=== PATIENT | male | born 1950 | race Caucasian/White ===

== ENCOUNTER 2018-03-11 11:50 | Emergency (ER) | payer OTHER ==
[2018-03-11 12:14] VITALS: BP 185/84; PULSE 70; RESP 18; TEMP 97.1
--- NOTE | 2018-03-11 12:46 | ED ---
General Adult HPI - General Chief complaint: Dental/Oral Stated complaint: Abscess Tooth, Facial Swelling Time Seen by Provider: 03/11/18 12:04 Source: patient, RN notes reviewed Mode of arrival: ambulatory Limitations: no limitations - History of Present Illness Initial comments: 58-year-old male says to the emergency department for a chief complaint of tooth infection 2 days. Patient states he believes he chipped his tooth with a peanut and has had pain and swelling since then. Patient admits the pain is worse when drinking hot or cold liquids. Patient denies fevers or chills. Patient denies neck pain or neck stiffness. Patient denies any headaches or visual changes. Patient denies any drainage from the tooth. Patient states he has an appointment in 5 days with a dentist but did not think he should wait to be seen.Patient has no other complaints at this time including shortness of breath, chest pain, abdominal pain, nausea or vomiting. - Related Data Previous Rx's Medication Instructions Recorded Colchicine 0.6 mg PO BID #20 capsule 06/26/15 Indomethacin [Indocin] 25 mg PO TID PRN #12 capsule 06/26/15 Ibuprofen [Motrin] 600 mg PO Q8HR PRN #20 tab 03/11/18 Penicillin V Potassium [Pen Vee K] 500 mg PO Q6H 10 Days tablet 03/11/18 Allergies Allergy/AdvReac Type Severity Reaction Status Date / Time No Known Allergies Allergy Verified 03/11/18 12:39 Review of Systems ROS Statement: Those systems with pertinent positive or pertinent negative responses have been documented in the HPI. ROS Other: All systems not noted in ROS Statement are negative. Past Medical History Past Medical History: Hyperlipidemia, Hypertension, Myocardial Infarction ([place]), Prostate Disorder Additional Past Medical History / Comment(s): gout History of Any Multi-Drug Resistant Organisms: MRSA Date of last positivie culture/infection: 2008/MRSA MDRO Source:: feet Past Surgical History: Coronary Bypass/CABG Additional Past Surgical History / Comment(s): defibrillator Past Psychological History: No Psychological Hx Reported Smoking Status: Former smoker Past Alcohol Use History: Occasional Past Drug Use History: None Reported General Exam Limitations: no limitations General appearance: alert, in no apparent distress Head exam: Present: atraumatic, normocephalic, normal inspection Eye exam: Present: normal appearance, PERRL, EOMI. Absent: scleral icterus, conjunctival injection, periorbital swelling, periorbital tenderness ENT exam: Present: normal exam, mucous membranes moist, TM's normal bilaterally , normal external ear exam, other (Patient has mild swelling of the right upper maxillary area. No signs of a cellulitic infection or abscess.). Absent: normal oropharynx (patient has a fractured tooth 8, tenderness to palpation. No abscess identified visually or with palpation of the gum line. ) Neck exam: Present: normal inspection, full ROM (Patient has full range of motion of the neck without any pain or stiffness), other (No swelling in the neck). Absent: tenderness, meningismus, lymphadenopathy Respiratory exam: Present: normal lung sounds bilaterally. Absent: respiratory distress, wheezes, rales, rhonchi, stridor Cardiovascular Exam: Present: regular rate, normal rhythm, normal heart sounds. Absent: systolic murmur, diastolic murmur, rubs, gallop, clicks Neurological exam: Present: alert, oriented X3, CN II-XII intact Psychiatric exam: Present: normal affect, normal mood Course Vital Signs 03/11/18 12:13 Temperature 97.1 F L Pulse Rate 70 Respiratory 18 Rate Blood Pressure 185/84 O2 Sat by Pulse 97 Oximetry Medical Decision Making - Medical Decision Making 68-year-old male presents to the emergency department for a chief complaint of tooth infection x 2 days. Patient has pain with the tooth as well. Patient denies fevers or chills at home. Afebrile on presentation. On exam patient has mild swelling of the right maxillary area and tenderness to tooth 8 which appears fractured. Patient does have poor dentition in general. No abscess noted on exam. Patient given penicillin for this. He has an appointment with his dentist in 5 days and will follow-up at that time. Patient aware he can return to the emergency department if he has any worsening symptoms and he should return if he has worsening pain, worsening swelling, or neck stiffness or fevers or chills at home. She is hypertensive with a systolic of 185/84 in the emergency department. However he was late on taking his blood pressure medications and just took them. He is asymptomatic and denies headache, shortness of breath, chest pain. He will follow up with primary care for blood pressure management. Disposition Clinical Impression: Dental infection Disposition: HOME SELF-CARE Condition: Good Instructions: Dental Caries (ED), Toothache (ED) Additional Instructions: Please take antibiotic as directed. Please take Motrin and Tylenol for pain. Please attend your dentist appointment on March 16. Return to the emergency department if you develop any worsening symptoms, fevers, or neck stiffness. Prescriptions: Ibuprofen [Motrin] 600 mg PO Q8HR PRN #20 tab PRN Reason: Pain Penicillin V Potassium [Pen Vee K] 500 mg PO Q6H 10 Days tablet Is patient prescribed a controlled substance at d/c from ED?: No Referrals: [facility],Clinic [Primary Care Provider] - 1-2 days Time of Disposition: 12:45
== END 2018-03-11 12:58 | disposition home or self-care (01) ==
LOC: EC 11:50
DX: K04.7 Periapical abscess without sinus (principal); S02.5XXA Fracture of tooth (traumatic), initial encounter for closed fracture; I10 Essential (primary) hypertension; I25.2 Old myocardial infarction; Z86.14 Personal history of Methicillin resistant Staphylococcus aureus infection; Z95.1 Presence of aortocoronary bypass graft; Z95.810 Presence of automatic (implantable) cardiac defibrillator; X58.XXXA Exposure to other specified factors, initial encounter
CPT/HCPCS: 99283

== ENCOUNTER 2018-11-30 19:04 | Emergency (ER) | payer MEDICARE, OTHER ==
[2018-11-30] MEDS ORDERED: ACETAMINOPHEN TAB 500 MG TAB PO STA (20:15)
[2018-11-30] MEDS ORDERED: IPRATROPIUM-ALBUTEROL 3 ML NEB INHALATION STA (20:35)
--- NOTE | 2018-11-30 20:36 | ED ---
URI HPI - General Chief Complaint: Upper Respiratory Infection Stated Complaint: Poss pneumonia Time Seen by Provider: 11/30/18 19:32 Source: patient Mode of arrival: ambulatory Limitations: no limitations - History of Present Illness Initial Comments: 68-year-old male patient with past medical history significant for CHF, hyperlipidemia, hypertension, [place], BPH, and gout presents to the emergency department today for evaluation of cough. Patient states that he has had a cough on and off for the last month. Patient states for the last week he started to feel better however started coughing again yesterday. Patient states that he has been feeling more weak and occasionally short of breath. Patient does admit to some blood in his sputum. He denies any nasal congestion, sore throat, or ear pain. He denies any known fevers or chills. He denies any increased swelling to his extremities. Denies any orthopnea. He has been taking his medications as directed. Patient denies any recent rash, chest pain, abdominal pain, nausea, vomiting, diarrhea, constipation, back pain, numbness, tingling, dizziness, weakness, hematuria, dysuria, urinary urgency, urinary frequency, headache, visual changes, or any other complaints. He does report a history of smoking, but states he quit 40 years ago. - Related Data Home Medications Medication Instructions Recorded Confirmed Allopurinol [Zyloprim] 150 mg PO BID 11/30/18 11/30/18 Finasteride [Proscar] 5 mg PO DAILY 11/30/18 11/30/18 Folic Acid 1 mg PO DAILY 11/30/18 11/30/18 Furosemide [Lasix] 40 mg PO BID 11/30/18 11/30/18 Metoprolol Tartrate [Lopressor] 75 mg PO BID 11/30/18 11/30/18 Ranitidine HCl [Zantac] 150 mg PO BID 11/30/18 11/30/18 Terazosin HCl 10 mg PO HS 11/30/18 11/30/18 traMADol HCL [Ultram] 50 mg PO Q4-6H PRN 11/30/18 11/30/18 Previous Rx's Medication Instructions Recorded Albuterol Sulfate [Proair Hfa] 1 - 2 puff INHALATION Q6HR PRN #1 11/30/18 inhaler Azithromycin [Zithromax Z-pack] 0 mg PO DIRECTED #6 tab 11/30/18 predniSONE 50 mg PO DAILY #5 tablet 11/30/18 Allergies Allergy/AdvReac Type Severity Reaction Status Date / Time No Known Allergies Allergy Verified 11/30/18 20:16 Review of Systems ROS Statement: Those systems with pertinent positive or pertinent negative responses have been documented in the HPI. ROS Other: All systems not noted in ROS Statement are negative. Past Medical History Past Medical History: Hyperlipidemia, Hypertension, Myocardial Infarction ([place]), Prostate Disorder Additional Past Medical History / Comment(s): gout History of Any Multi-Drug Resistant Organisms: MRSA Date of last positivie culture/infection: 2008/MRSA MDRO Source:: feet Past Surgical History: Coronary Bypass/CABG Additional Past Surgical History / Comment(s): defibrillator Past Psychological History: No Psychological Hx Reported Smoking Status: Former smoker Past Alcohol Use History: Occasional Past Drug Use History: None Reported General Exam Limitations: no limitations General appearance: alert, in no apparent distress, other (Physical well- developed, well-nourished elderly male patient in no acute distress. Vital signs upon presentation are temperature 101.5F oral, pulse 81, respirations 22, blood pressure 150/71, pulse ox 94% on room air.) Eye exam: Present: normal appearance, PERRL, EOMI. Absent: scleral icterus, conjunctival injection, periorbital swelling ENT exam: Present: normal exam, normal oropharynx, mucous membranes moist Respiratory exam: Present: wheezes (Coarse expiratory wheezing at the posterior bases). Absent: normal lung sounds bilaterally, respiratory distress, rales, rhonchi, stridor Cardiovascular Exam: Present: regular rate, normal rhythm, normal heart sounds. Absent: systolic murmur, diastolic murmur, rubs, gallop, clicks GI/Abdominal exam: Present: soft, normal bowel sounds. Absent: distended, tenderness, guarding, rebound, rigid Neurological exam: Present: alert, oriented X3, CN II-XII intact Psychiatric exam: Present: normal affect, normal mood Skin exam: Present: warm, dry, intact, normal color. Absent: rash Course Vital Signs 11/30/18 11/30/18 11/30/18 19:13 20:14 20:45 Temperature 99.5 F 101.5 F H Pulse Rate 81 79 Respiratory 22 20 Rate Blood Pressure 150/71 145/62 O2 Sat by Pulse 94 L 94 L Oximetry 11/30/18 11/30/18 11/30/18 21:36 21:46 21:52 Temperature 100.3 F H Pulse Rate 80 80 78 Respiratory 18 Rate Blood Pressure 146/70 O2 Sat by Pulse 96 Oximetry 11/30/18 23:15 Temperature Pulse Rate 76 Respiratory 18 Rate Blood Pressure 140/65 O2 Sat by Pulse 94 L Oximetry Medical Decision Making - Medical Decision Making 68-year-old male patient presents to the emergency department today for evaluation of dry cough, occasional shortness of breath, and fever. Physical examination reveals mild expiratory wheezing at the posterior bases. Patient is in no respiratory distress. His breathing without difficulty. Oxygen saturation is 94% on initial evaluation. Labs reviewed and were unremarkable. What normal white blood cell count. He is negative for influenza. Chest x-ray shows no acute cardio pulmonary process. Upon reevaluation patient states he does feel better. He does feel comfortable being discharged home at this time. He'll be started on steroids, antibiotics, and given a Pro Air inhaler. He is instructed to follow-up with his primary care physician for recheck in 1-2 days. He is instructed to maintain low threshold for return. Return parameters were discussed in detail. He verbalizes understanding and agrees with this plan. - Lab Data Result diagrams: 11/30/18 20:35 11/30/18 20:35 Lab Results 11/30/18 11/30/18 11/30/18 Range/Units 20:35 20:35 20:35 WBC 9.1 (3.8-10.6) k/uL RBC 4.33 (4.30-5.90) m/uL Hgb 13.5 (13.0-17.5) gm/dL Hct 38.8 L (39.0-53.0) % MCV 89.5 (80.0-100.0) fL MCH 31.2 (25.0-35.0) pg MCHC 34.9 (31.0-37.0) g/dL RDW 15.2 (11.5-15.5) % Plt Count 136 L (150-450) k/uL Neutrophils % 78 % Lymphocytes % 12 % Monocytes % 5 % Eosinophils % 3 % Basophils % 0 % Neutrophils # 7.1 (1.3-7.7) k/uL Lymphocytes # 1.1 (1.0-4.8) k/uL Monocytes # 0.5 (0-1.0) k/uL Eosinophils # 0.3 (0-0.7) k/uL Basophils # 0.0 (0-0.2) k/uL Hyperchromasia Slight Poikilocytosis Slight PT (9.0-12.0) sec INR (<1.2) APTT (22.0-30.0) sec D-Dimer (<0.60) mg/L FEU Sodium 141 (137-145) mmol/L Potassium 4.1 (3.5-5.1) mmol/L Chloride 102 (98-107) mmol/L Carbon Dioxide 30 (22-30) mmol/L Anion Gap 9 mmol/L BUN 17 (9-20) mg/dL Creatinine 1.26 H (0.66-1.25) mg/dL Est GFR (CKD-EPI)AfAm 67 (>60 ml/min/1.73 sqM) Est GFR (CKD-EPI)NonAf 58 (>60 ml/min/1.73 sqM) Glucose 117 H (74-99) mg/dL Plasma Lactic Acid Josue 1.6 (0.7-2.0) mmol/L Calcium 9.8 (8.4-10.2) mg/dL Total Bilirubin 1.1 (0.2-1.3) mg/dL AST 59 (17-59) U/L ALT 59 (21-72) U/L Alkaline Phosphatase 43 (38-126) U/L Total Protein 7.0 (6.3-8.2) g/dL Albumin 4.4 (3.5-5.0) g/dL Urine Color Urine Appearance (Clear) Urine pH (5.0-8.0) Ur Specific [place] (1.001-1.035) Urine Protein (Negative) Urine Glucose (UA) (Negative) Urine Ketones (Negative) Urine Blood (Negative) Urine Nitrite (Negative) Urine Bilirubin (Negative) Urine Urobilinogen (<2.0) mg/dL Ur Leukocyte Esterase (Negative) Influenza Type A RNA (Not Detectd) Influenza Type B (PCR) (Not Detectd) 11/30/18 11/30/18 11/30/18 Range/Units 20:35 20:35 21:49 WBC (3.8-10.6) k/uL RBC (4.30-5.90) m/uL Hgb (13.0-17.5) gm/dL Hct (39.0-53.0) % MCV (80.0-100.0) fL MCH (25.0-35.0) pg MCHC (31.0-37.0) g/dL RDW (11.5-15.5) % Plt Count (150-450) k/uL Neutrophils % % Lymphocytes % % Monocytes % % Eosinophils % % Basophils % % Neutrophils # (1.3-7.7) k/uL Lymphocytes # (1.0-4.8) k/uL Monocytes # (0-1.0) k/uL Eosinophils # (0-0.7) k/uL Basophils # (0-0.2) k/uL Hyperchromasia Poikilocytosis PT 10.0 (9.0-12.0) sec INR 0.9 (<1.2) APTT 23.9 (22.0-30.0) sec D-Dimer 0.54 (<0.60) mg/L FEU Sodium (137-145) mmol/L Potassium (3.5-5.1) mmol/L Chloride (98-107) mmol/L Carbon Dioxide (22-30) mmol/L Anion Gap mmol/L BUN (9-20) mg/dL Creatinine (0.66-1.25) mg/dL Est GFR (CKD-EPI)AfAm (>60 ml/min/1.73 sqM) Est GFR (CKD-EPI)NonAf (>60 ml/min/1.73 sqM) Glucose (74-99) mg/dL Plasma Lactic Acid Josue (0.7-2.0) mmol/L Calcium (8.4-10.2) mg/dL Total Bilirubin (0.2-1.3) mg/dL AST (17-59) U/L ALT (21-72) U/L Alkaline Phosphatase (38-126) U/L Total Protein (6.3-8.2) g/dL Albumin (3.5-5.0) g/dL Urine Color Light Yellow Urine Appearance Clear (Clear) Urine pH 6.5 (5.0-8.0) Ur Specific [place] 1.008 (1.001-1.035) Urine Protein Negative (Negative) Urine Glucose (UA) Negative (Negative) Urine Ketones Negative (Negative) Urine Blood Negative (Negative) Urine Nitrite Negative (Negative) Urine Bilirubin Negative (Negative) Urine Urobilinogen <2.0 (<2.0) mg/dL Ur Leukocyte Esterase Negative (Negative) Influenza Type A RNA Not Detected (Not Detectd) Influenza Type B (PCR) Not Detected (Not Detectd) - EKG Data -: EKG Interpreted by Ks EKG Comments: EKG obtained at 2041 shows normal sinus rhythm with a ventricular rate is 79, KS interval 178, QRS duration 98, QT 366, QTC 419. No evidence of ST elevation or depression. - Radiology Data Radiology results: report reviewed, image reviewed Two-view x-ray of the chest is obtained. Report reviewed in its entirety. Impression by Dr. Tubbs shows no active cardiopulmonary disease. Disposition Clinical Impression: Acute bronchitis Disposition: HOME SELF-CARE Condition: Good Instructions (If sedation given, give patient instructions): Acute Bronchitis (ED) Additional Instructions: Complete medications as prescribed. Follow-up with primary care physician for recheck in 1-2 days. Return to the emergency department immediately for any new, worsening, or concerning symptoms. Prescriptions: predniSONE 50 mg PO DAILY #5 tablet Albuterol Sulfate [Proair Hfa] 1 - 2 puff INHALATION Q6HR PRN #1 inhaler PRN Reason: Shortness Of Breath Azithromycin [Zithromax Z-pack] 0 mg PO DIRECTED #6 tab Is patient prescribed a controlled substance at d/c from ED?: No Referrals: [facility],Clinic [Primary Care Provider] - 1-2 days Time of Disposition: 22:26
[2018-11-30] MEDS: SODIUM CHLORIDE 0.9% 500 ML 500 ML IV SCH ×2 (20:50→20:51)
[2018-11-30 21:19] LABS: Basophils % (A) 0 %; Eosinophils # (A) 0.3 k/uL (0-0.7); Eosinophils % (A) 3 %; HCT 38.8 % (39.0-53.0); HGB 13.5 gm/dL (13.0-17.5); Hyperchromasia Slight; Lymphocytes # (A) 1.1 k/uL (1.0-4.8); Lymphocytes % (A) 12 %; MCH 31.2 pg (25.0-35.0); MCHC 34.9 g/dL (31.0-37.0); MCV 89.5 fL (80.0-100.0); Mean Platelet Volume 7.6; Monocytes # (A) 0.5 k/uL (0-1.0); Monocytes % (A) 5 %; Neutrophils # (A) 7.1 k/uL (1.3-7.7); Neutrophils % (A) 78 %; Platelet Count 136 k/uL (150-450); Poikilocytosis Slight; RBC 4.33 m/uL (4.30-5.90); RDW 15.2 % (11.5-15.5); WBC 9.1 k/uL (3.8-10.6)
[2018-11-30 21:27] LABS: D-Dimer 0.54 mg/L FEU (<0.60); INR 0.9 (<1.2); Partial Thromboplastin Time 23.9 sec (22.0-30.0)
[2018-11-30 21:33] LABS: Albumin 4.4 g/dL (3.5-5.0); Calcium 9.8 mg/dL (8.4-10.2); Potassium 4.1 mmol/L (3.5-5.1); Total Bilirubin 1.1 mg/dL (0.2-1.3)
--- NOTE | 2018-11-30 21:46 | XR ---
EXAMINATION TYPE: XR chest 2V DATE OF EXAM: 11/30/2018 COMPARISON: NONE HISTORY: Cough TECHNIQUE: Frontal and lateral views of the chest are obtained. FINDINGS: Heart is normal. Lungs are clear of consolidation. There is no pleural effusion. There are sternal wires. There are chest leads. Bony thorax is intact. IMPRESSION: No active cardiopulmonary disease.
[2018-11-30 21:53] VITALS: RESP 18; TEMP 100.3
[2018-11-30 22:03] LABS: Appearance,Urine Clear (Clear); Bilirubin,Urine Negative (Negative); Blood,Urine Negative (Negative); Color,Urine Light Yellow; Glucose,Urine (UA) Negative (Negative); Ketones,Urine Negative (Negative); Leukocyte Esterase,Urine Negative (Negative); Nitrite,Urine Negative (Negative); PH, Urine 6.5 (5.0-8.0); Protein,Urine Negative (Negative); Specific Gravity,Urine 1.008 (1.001-1.035); Urobilinogen,Urine <2.0 mg/dL (<2.0)
[2018-11-30] MEDS ORDERED: AZITHROMYCIN 500 MG TAB PO STA (22:26)
[2018-11-30 23:16] VITALS: BP 140/65; PULSE 76
== END 2018-11-30 23:16 | disposition home or self-care (01) ==
LOC: EC 19:04
DX: J20.9 Acute bronchitis, unspecified (principal); R53.1 Weakness; I10 Essential (primary) hypertension; I25.2 Old myocardial infarction; N42.9 Disorder of prostate, unspecified; M10.9 Gout, unspecified; Z86.14 Personal history of Methicillin resistant Staphylococcus aureus infection; Z95.1 Presence of aortocoronary bypass graft; Z95.810 Presence of automatic (implantable) cardiac defibrillator; Z87.891 Personal history of nicotine dependence; Z79.899 Other long term (current) drug therapy
CPT/HCPCS: 36415; 71046; 80053; 81003; 83605; 85025; 85379; 85610; 85730; 87040; 87086; 87502; 93005; 94640; 99284

== ENCOUNTER 2020-07-17 08:55 | Day surgery (SDC) | payer OTHER ==
[2020-07-15 14:39] VITALS: BMI 42.4
[~2020-07-17 08:55] MED LIST: LACTATED RINGERS 1,000 ML IV SCH; LIDOCAINE 1% (10MG/ML) FOR IV START INTRADERMA PRN
[2020-07-17 09:25] VITALS: RESP 18; TEMP 97.4
[2020-07-17] MEDS ORDERED: PROPOFOL 10 MG/ML 20 ML VIAL IV ONE (10:16)
--- NOTE | 2020-07-17 10:46 | P.PCN ---
Date of Procedure: 07/17/20 Procedure(s) Performed: BRIEF HISTORY: Patient is a 70-year-old pleasant male scheduled for an elective colonoscopy as a part of screening for colorectal neoplasia. Last colonoscopy was 7 years ago. PROCEDURE PERFORMED: Colonoscopy with snare polypectomy. PREOPERATIVE DIAGNOSIS: Screening for colon cancer. IV sedation per Anesthesia. PROCEDURE: After informed consent was obtained, the patient, was brought into the endoscopy unit. IV sedation was administered by Anesthesia under continuous monitoring. Digital rectal examination was normal. Initially the Olympus CF-160 flexible video colonoscope was then inserted in the rectum, gradually advanced into the cecum without any difficulty. Careful examination was performed as the scope was gradually being withdrawn. Ileocecal valve and the appendiceal orifice were visualized and appeared normal. Prep was excellent. Mucosa of the cecum, ascending colon, normal. The transverse colon there was a 5 mm polyp that was removed by snare polypectomy. In the descending colon there was a 7 mm polyp removed by snare polypectomy. Rest of the transverse colon, descending colon, sigmoid colon, and rectum appeared normal. Retroflexion was performed in the rectum and no lesions were seen. The patient tolerated the procedure well. IMPRESSION: 5 mm transverse colon polyp status post polypectomy 7 mm descending colon polyp status post polypectomy RECOMMENDATIONS: Findings of this examination were discussed with the patient as well as his family. He was advised to follow with the biopsy results. If the biopsy shows an adenoma he can have a repeat colonoscopy in 5.
[2020-07-17 11:15] VITALS: BP 163/84; PULSE 60
== END 2020-07-17 11:20 | disposition home or self-care (01) ==
LOC: ORWHC2ENDO 08:55
PROVIDERS: ATTEND Internal Medicine Gastroenterology
DX: Z12.11 Encounter for screening for malignant neoplasm of colon (principal); K63.5 Polyp of colon; I25.10 Atherosclerotic heart disease of native coronary artery without angina pectoris; I11.0 Hypertensive heart disease with heart failure; I50.9 Heart failure, unspecified; Z87.891 Personal history of nicotine dependence; I25.2 Old myocardial infarction; Z95.1 Presence of aortocoronary bypass graft; E78.5 Hyperlipidemia, unspecified; E07.9 Disorder of thyroid, unspecified; N40.0 Benign prostatic hyperplasia without lower urinary tract symptoms; F41.9 Anxiety disorder, unspecified; K21.9 Gastro-esophageal reflux disease without esophagitis; Z79.891 Long term (current) use of opiate analgesic; Z79.82 Long term (current) use of aspirin; Z79.899 Other long term (current) drug therapy
CPT/HCPCS: 88305; 45385; J2704

== ENCOUNTER 2021-08-21 13:19 | Emergency (ER) | payer OTHER, MEDICARE ==
[2021-08-21 14:14] VITALS: BP 128/73; PULSE 65; RESP 18; TEMP 99
--- NOTE | 2021-08-21 14:43 | XR ---
EXAMINATION TYPE: XR Hip Complete LT DATE OF EXAM: 08/21/2021 CLINICAL HISTORY: Pain after fall injury. TECHNIQUE: AP and frogleg views of the left hip are obtained. COMPARISON: None. FINDINGS: There is no acute fracture/dislocation evident in the left hip. Mild and moderate axial nabeel int space loss and mild acetabular spurring. The overlying soft tissue appears unremarkable. IMPRESSION: There is no acute fracture or dislocation in the left hip.
--- NOTE | 2021-08-21 15:55 | ED ---
General Adult HPI - General Chief complaint: Extremity Injury, Lower Stated complaint: Fall-L hip pain Time Seen by Provider: 08/21/21 15:28 Source: patient Mode of arrival: wheelchair Limitations: no limitations - History of Present Illness Initial comments: Dictation was produced using [employer] dictation software. please excuse any grammatical, word or spelling errors. Chief Complaint: 71-year-old male presents with left hip pain History of Present Illness: 71-year-old male who presents with subacute left hip pain. He was seen by his primary care doctor was prescribed tramadol. Patient states that tramadol has not been helping him improve his symptoms. Patient states that during the most recent snowfall he is being outside shoveling snow. Patient states she's been developing worsening left hip pain. States that yesterday he was shaking his foot to get the snuff of his foot when all of a sudden he felt sharp pain towards his left hip. States worse with hip flexion. Patient still able to ambulate but with a minimal limp. Denies a fever chills or night sweats. Patient has no other complaints. The ROS documented in this emergency department record has been reviewed and confirmed by me. Those systems with pertinent positive or negative responses have been documented in the HPI. All other systems are other negative and/or noncontributory. PHYSICAL EXAM: General Impression: Alert and oriented x3, not in acute distress HEENT: Normocephalic atraumatic, extra-ocular movements intact, pupils equal and reactive to light bilaterally, mucous membranes moist. Cardiovascular: Heart regular rate and rhythm Chest: Able to complete full sentences, no retractions, no tachypnea Musculoskeletal: Pulses present and equal in all extremities, no peripheral edema Left lower extremity: Neurovascular intact. His normal dorsalis pedis. Good cap refill. Patient is reproduced with external rotation of the left hip. Motor: no focal deficits noted Neurological: CN II-XII grossly intact, no focal motor or sensory deficits noted Skin: Intact with no visualized rashes Psych: Normal affect and mood ED course: 71-year-old male presents to the emergency department for atraumatic left hip pain. Hip x-rays unremarkable. Vital signs are within acceptable limits. Clinical presentation consistent with musculoskeletal strain. Patient given prescription for [place] as. Advised follow-up with PCP. - Related Data Home Medications Medication Instructions Recorded Confirmed Finasteride [Proscar] 5 mg PO DAILY 11/30/18 07/17/20 Folic Acid 1 mg PO DAILY 11/30/18 07/17/20 Furosemide [Lasix] 40 mg PO BID 11/30/18 07/17/20 Terazosin HCl 10 mg PO HS 11/30/18 07/17/20 Atorvastatin [Lipitor] 80 mg PO DAILY 09/11/19 07/17/20 Metoprolol Tartrate [Lopressor] 100 mg PO BID 09/11/19 07/17/20 Allopurinol [Zyloprim] 300 mg PO DAILY 07/15/20 07/17/20 traMADol HCL [Ultram] 50 - 100 mg PO Q6HR PRN 07/15/20 07/17/20 Previous Rx's Medication Instructions Recorded HYDROcodone/APAP 5-325MG [[place] 1 tab PO Q6HR PRN 3 Days #12 tab 08/21/21 5-325] Allergies Allergy/AdvReac Type Severity Reaction Status Date / Time No Known Allergies Allergy Verified 08/21/21 14:14 Review of Systems ROS Statement: Those systems with pertinent positive or pertinent negative responses have been documented in the HPI. ROS Other: All systems not noted in ROS Statement are negative. Past Medical History Past Medical History: Coronary Artery Disease (CAD), Heart Failure, GERD/Reflux, Hyperlipidemia, Hypertension, Myocardial Infarction ([place]), Osteoarthritis ([place]), Prostate Disorder, Renal Disease Additional Past Medical History / Comment(s): GOUT, BPH, BACK & KNEE PAIN., 64 % KIDNEY FUNCTION. Last Myocardial Infarction Date:: 2008 History of Any Multi-Drug Resistant Organisms: MRSA Date of last positivie culture/infection: 2008/MRSA MDRO Source:: LUNG Past Surgical History: Coronary Bypass/CABG Additional Past Surgical History / Comment(s): COLONOSCOPY, CABG (2008) Past Anesthesia/Blood Transfusion Reactions: No Reported Reaction Past Psychological History: Anxiety Smoking Status: Former smoker Past Alcohol Use History: Daily Past Drug Use History: None Reported - Past Family History Father Family Medical History: Cancer Additional Family Medical History / Comment(s): COLON CANCER General Exam Limitations: no limitations Course Vital Signs 08/21/21 14:12 Temperature 99 F Pulse Rate 65 Respiratory 18 Rate Blood Pressure 128/73 O2 Sat by Pulse 97 Oximetry Disposition Clinical Impression: Hip pain Disposition: HOME SELF-CARE Condition: Good Instructions (If sedation given, give patient instructions): Hip Pain (ED) Prescriptions: HYDROcodone/APAP 5-325MG [[place] 5-325] 1 tab PO Q6HR PRN 3 Days #12 tab PRN Reason: Severe Pain Is patient prescribed a controlled substance at d/c from ED?: Yes If prescribed controlled substance>3 days was MAPS reviewed?: Prescribed <3 Days Referrals: [facility],Clinic [Primary Care Provider] - 1-2 days
== END 2021-08-21 16:05 | disposition home or self-care (01) ==
LOC: EC 13:19
DX: M25.552 Pain in left hip (principal); I11.0 Hypertensive heart disease with heart failure; I50.9 Heart failure, unspecified; I25.10 Atherosclerotic heart disease of native coronary artery without angina pectoris; K21.9 Gastro-esophageal reflux disease without esophagitis; E78.5 Hyperlipidemia, unspecified; I25.2 Old myocardial infarction; M19.90 Unspecified osteoarthritis, unspecified site; F41.9 Anxiety disorder, unspecified; Z95.1 Presence of aortocoronary bypass graft; Z87.891 Personal history of nicotine dependence
CPT/HCPCS: 73502; 99284

== ENCOUNTER 2022-02-17 12:23 | Emergency (ER) | payer OTHER, MEDICARE ==
[2022-02-17 12:29] VITALS: BP 158/83; PULSE 71; RESP 16; TEMP 98.6
[2022-02-17 13:02] LABS: Basophils % (A) 1 %; Eosinophils # (A) 0.2 k/uL (0-0.7); Eosinophils % (A) 3 %; HCT 39.8 % (39.0-53.0); HGB 13.6 gm/dL (13.0-17.5); Lymphocytes # (A) 1.6 k/uL (1.0-4.8); Lymphocytes % (A) 20 %; MCH 31.7 pg (25.0-35.0); MCHC 34.2 g/dL (31.0-37.0); MCV 92.6 fL (80.0-100.0); Mean Platelet Volume 8.4; Monocytes # (A) 0.5 k/uL (0-1.0); Monocytes % (A) 6 %; Neutrophils # (A) 5.5 k/uL (1.3-7.7); Neutrophils % (A) 69 %; Platelet Count 133 k/uL (150-450); RDW 14.5 % (11.5-15.5); WBC 7.9 k/uL (3.8-10.6)
[2022-02-17 13:12] LABS: Albumin 4.5 g/dL (3.5-5.0); Calcium 9.5 mg/dL (8.4-10.2); Potassium 4.4 mmol/L (3.5-5.1); Total Bilirubin 0.9 mg/dL (0.2-1.3); Total Protein 7.5 g/dL (6.3-8.2)
--- NOTE | 2022-02-17 14:45 | ED ---
General Adult HPI - General Chief complaint: Recheck/Abnormal Lab/Rx Stated complaint: Lab Recheck Time Seen by Provider: 02/17/22 14:10 Source: patient, RN notes reviewed, old records reviewed Mode of arrival: ambulatory Limitations: no limitations - History of Present Illness Initial comments: Patient presents emergency department for laboratory draw. He has a history of CAD, heart failure, hypertension, prostate disorder, alcohol use. He has a hi story of mild thrombocytopenia. Was sent in today for redraws he states that he was told his platelets are low. He has no symptoms. Denies chest pain, shortness breath, abdominal pain, nausea, vomiting. Denies any source of bleeding. Has no other acute complaints at this time. - Related Data Home Medications Medication Instructions Recorded Confirmed Finasteride [Proscar] 5 mg PO DAILY 11/30/18 07/17/20 Folic Acid 1 mg PO DAILY 11/30/18 07/17/20 Furosemide [Lasix] 40 mg PO BID 11/30/18 07/17/20 Terazosin HCl 10 mg PO HS 11/30/18 07/17/20 Atorvastatin [Lipitor] 80 mg PO DAILY 09/11/19 07/17/20 Metoprolol Tartrate [Lopressor] 100 mg PO BID 09/11/19 07/17/20 allopurinoL [Zyloprim] 300 mg PO DAILY 07/15/20 07/17/20 traMADol HCL [Ultram] 50 - 100 mg PO Q6HR PRN 07/15/20 07/17/20 Previous Rx's Medication Instructions Recorded HYDROcodone/APAP 5-325MG [[place] 1 tab PO Q6HR PRN 3 Days #12 tab 08/21/21 5-325] Allergies Allergy/AdvReac Type Severity Reaction Status Date / Time No Known Allergies Allergy Verified 02/17/22 12:27 Review of Systems ROS Statement: Those systems with pertinent positive or pertinent negative responses have been documented in the HPI. Review of Systems: CONST: Denies fever EYES: Denies blurry vision ENT: Denies nasal congestion C/V: Denies Chest pain RESP: Denies shortness of breath GI: Denies abdominal pain : Denies dysuria SKIN: Denies rash. MSK: Denies joint pain. NEURO: Denies headache ROS Other: All systems not noted in ROS Statement are negative. Past Medical History Past Medical History: Coronary Artery Disease (CAD), Heart Failure, GERD/Reflux, Hyperlipidemia, Hypertension, Myocardial Infarction ([place]), Osteoarthritis (OA), Prostate Disorder, Renal Disease Additional Past Medical History / Comment(s): GOUT, BPH, BACK & KNEE PAIN., 64 % KIDNEY FUNCTION. Last Myocardial Infarction Date:: 2008 History of Any Multi-Drug Resistant Organisms: MRSA Date of last positivie culture/infection: 2009/MRSA MDRO Source:: LUNG Past Surgical History: Coronary Bypass/CABG Additional Past Surgical History / Comment(s): COLONOSCOPY, CABG (2008) Past Anesthesia/Blood Transfusion Reactions: No Reported Reaction Past Psychological History: Anxiety Smoking Status: Former smoker Past Alcohol Use History: Daily Past Drug Use History: None Reported - Past Family History Father Family Medical History: Cancer Additional Family Medical History / Comment(s): COLON CANCER General Exam - General Exam Comments Initial Comments: General: Appears in no acute distress. HEAD: Normal with no signs of head trauma. EYES: PERRLA, EOMI, conjunctiva normal, no discharge. ENT: Hearing grossly intact, normal oropharynx. RESPIRATORY: Clear breath sounds bilaterally. C/V: Regular rate and rhythm. S1 and S2 auscultated. Peripheral pulses 2+ and intact. ABD: Abd is soft, nontender, nondistended EXT: Normal range of motion, no obvious deformity SKIN: No rashes or lesions observed on exposed skin. NEURO: Alert and oriented 4. Limitations: no limitations Course Vital Signs 02/17/22 12:27 Temperature 98.6 F Pulse Rate 71 Respiratory 16 Rate Blood Pressure 158/83 O2 Sat by Pulse 98 Oximetry Medical Decision Making - Medical Decision Making Patient presents laboratory redraw. He has no acute complaints. Vital signs within normal limits. Exam within normal limits. Patient is chronically thrombocytopenia to 136. Redraw here is 133. Patient also has a chronically elevated BUN/creatinine of 21 and 1.27 which appear to be within his baseline with a history of CK D. Remainder the labs are unremarkable. I discussed results with the patient. I believe it is safe for him to follow up with his PCP. He was in agreement this plan. I instructed the patient to follow up with their PCP in the next 1-3 days. I explained that the patient should return to the emergency department if they experience any worsening symptoms. Strict return precautions were discussed with the patient. The patient expressed understanding of these instructions. I answered all questions that the patient had. The patient was discharged home in good condition with their prescriptions and follow up information. - Lab Data Result diagrams: 02/17/22 12:52 02/17/22 12:52 Lab Results 02/17/22 02/17/22 Range/Units 12:52 12:52 WBC 7.9 (3.8-10.6) k/uL RBC 4.30 (4.30-5.90) m/uL Hgb 13.6 (13.0-17.5) gm/dL Hct 39.8 (39.0-53.0) % MCV 92.6 (80.0-100.0) fL MCH 31.7 (25.0-35.0) pg MCHC 34.2 (31.0-37.0) g/dL RDW 14.5 (11.5-15.5) % Plt Count 133 L (150-450) k/uL MPV 8.4 Neutrophils % 69 % Lymphocytes % 20 % Monocytes % 6 % Eosinophils % 3 % Basophils % 1 % Neutrophils # 5.5 (1.3-7.7) k/uL Lymphocytes # 1.6 (1.0-4.8) k/uL Monocytes # 0.5 (0-1.0) k/uL Eosinophils # 0.2 (0-0.7) k/uL Basophils # 0.0 (0-0.2) k/uL Sodium 138 (137-145) mmol/L Potassium 4.4 (3.5-5.1) mmol/L Chloride 100 (98-107) mmol/L Carbon Dioxide 24 (22-30) mmol/L Anion Gap 14 mmol/L BUN 21 H (9-20) mg/dL Creatinine 1.27 H (0.66-1.25) mg/dL Est GFR (CKD-EPI)AfAm 64 (>60 ml/min/1.73 sqM) Est GFR (CKD-EPI)NonAf 56 (>60 ml/min/1.73 sqM) Glucose 119 H (74-99) mg/dL Calcium 9.5 (8.4-10.2) mg/dL Total Bilirubin 0.9 (0.2-1.3) mg/dL AST 29 (17-59) U/L ALT 24 (4-49) U/L Alkaline Phosphatase 58 (38-126) U/L Total Protein 7.5 (6.3-8.2) g/dL Albumin 4.5 (3.5-5.0) g/dL Disposition Clinical Impression: Encounter for laboratory test Narrative: Chronic thrombocytopenia Disposition: HOME SELF-CARE Condition: Good Additional Instructions: Your platelet count is 133. This is unchanged from 3 years ago when it was 136. It is stable. Follow up with PCP for re-evaluation in 1-3 days. Is patient prescribed a controlled substance at d/c from ED?: No Referrals: [facility],Clinic [Primary Care Provider] - 1-2 days Time of Disposition: 14:30
== END 2022-02-17 15:07 | disposition home or self-care (01) ==
LOC: EC 12:23
DX: Z00.00 Encounter for general adult medical examination without abnormal findings (principal); D69.1 Qualitative platelet defects; I25.10 Atherosclerotic heart disease of native coronary artery without angina pectoris; K21.9 Gastro-esophageal reflux disease without esophagitis; E78.5 Hyperlipidemia, unspecified; M19.90 Unspecified osteoarthritis, unspecified site; I25.2 Old myocardial infarction; I13.0 Hypertensive heart and chronic kidney disease with heart failure and stage 1 through stage 4 chronic kidney disease, or unspecified chronic kidney disease; N18.9 Chronic kidney disease, unspecified; I50.9 Heart failure, unspecified; F41.9 Anxiety disorder, unspecified; Z87.891 Personal history of nicotine dependence; Z79.899 Other long term (current) drug therapy
CPT/HCPCS: 36415; 80053; 85025; 99283

== ENCOUNTER 2024-02-23 22:30 | Emergency (ER) | payer MEDICARE, OTHER ==
[~2024-02-23 22:30] MED LIST changes: -LACTATED RINGERS 1,000 ML IV SCH; -LIDOCAINE 1% (10MG/ML) FOR IV START INTRADERMA PRN; +SODIUM CHLORIDE 0.9% 1,000 ML BAG ONE
[2024-02-23] MEDS ORDERED: ACETAMINOPHEN TAB 500 MG TAB ONE (23:09)
[2024-02-24] MEDS ORDERED: cefTRIAXone IN SWFI 1,000 MG/10 ML SYRINGE IVP ONE (04:47)
== END 2024-02-24 05:25 | disposition home or self-care (01) ==
LOC: EC 22:30
CPT/HCPCS: 93005; 96361; 96374; 99284